=== PATIENT | male | born 1940 | race Caucasian/White ===

== ENCOUNTER 2016-11-01 06:25 | Inpatient (IN) | payer MEDICARE, OTHER ==
--- NOTE | ~2016-11-01 | OP ---
Record Of Operation [facility] [address] [place]. [address] NAME: MAURICIO SCHILLING : 38 STATUS : ADM IN PAT#: [id number] AGE: 76 ADM/REG DATE : 11/01/16 MR#: [id number] REPORT SERV DATE: 11/01/16 DICTATED BY: GAURAV VALENTINE JR. DATE: 11/01/16 REPORT STATUS : Draft TRANSCRIBED BY: MODL DATE: 11/01/16 DATE OF PROCEDURE: 11/01/2016 PREOPERATIVE DIAGNOSIS: Severe right carotid stenosis, previous subclinical strokes. POSTOPERATIVE DIAGNOSIS: Severe right carotid stenosis, previous subclinical strokes. OPERATION: Right carotid endarterectomy with bovine patch angioplasty. SURGEON: Gaurav Valentine M.D. HISTORY: This is a 76-year-old white male, who is admitted to the hospital two days ago for kidney biopsy for a creatinine of 2.7. While in the hospital, he related a story which sounded like a small right hemispheric stroke on 10/11. He had a carotid ultrasound which showed a severe right carotid stenosis. I was then asked to see this patient in consultation. PROCEDURE IN DETAIL: The patient was placed on the operating room table. He underwent a general endotracheal anesthetic. Right side of the neck was prepped and draped in the usual sterile manner. Standard right-sided sternocleidomastoid incision was made. Dissection was carried down to the muscle which was reflected laterally. The facial vein was identified. It was clamped, cut, and tied. The underlying carotid bifurcation was then seen. The patient was heparinized early with 4000 units of heparin to try to prevent potential embolization. All branches of the carotid artery were then encircled with vessel loop away from the bifurcation. All branches were then clamped. An arteriotomy was then done between the CCA and the ICA. A very heavily calcified and ulcerated plaque was seen at the origin of the ICA. This plaque tended to go up superiorly in the neck. Because of these latter two findings, I did not feel that it was reasonable to put a shunt for fear that I would embolize the brain. There was excellent backbleeding from the ICA. Endarterectomy started in the area of the CCA, was carried up to the ECA and then to the ICA. The plaque feathered nicely in the ECA. It tended to one feather in a very distal fashion in the ICA. Fine forceps were used to get all smooth muscle floaters. We elected to patch the arteriotomy open using a piece of bovine pericardial patch material sewn in place as an onlay patch with 6-0 Prolene suture. Before finishing the suture line, the artery was irrigated and bled antegrade and retrograde without clots being seen. The suture line was finished. Blood was laterally run up into the ECA first. There were good Doppler signals distally. I did not feel that a drain was necessary. A protamine was not given. The neck was closed in layers with 3-0 Vicryl deep and 4-0 Vicryl in the skin. The patient tolerated the procedure well and taken back to recovery room in fair condition. No intraoperative complications. Estimated blood loss was 100 mL. DF/ERIN Record Of Operation [address] [address] NAME: MAURICIO SCHILLING : 38 STATUS : ADM IN PAT#: [id number] AGE: 76 ADM/REG DATE : 11/01/16 MR#: [id number] REPORT SERV DATE: 11/01/16 DICTATED BY: GAURAV VALENTINE JR. DATE: 11/01/16 REPORT STATUS : Draft TRANSCRIBED BY: ERIN DATE: 11/01/16 aGurav Valentine Jr., M.D. / [id number] CC: Barb Colmenares Jr., M.D.
[~2016-11-01 06:25] MED LIST: 8 HOUR650 MG PO; ALEVE220 MG PO; ASA5GR PO; COREG12 PO; COZ50 PO; LIPITOR40 PO; NORV5 PO; PRAVAC PO
[2016-11-02] MEDS ORDERED: NORCO1 TA1 PO (12:24)
== END 2016-11-02 17:14 | disposition home or self-care (01) | DRG 27 ==
LOC: SDC/OF 06:25 → PACU 10:26 → 2SO 13:49
PROVIDERS: Surgery
PROC: 03CK3ZZ Extirpation of Matter from Right Internal Carotid Artery, Percutaneous Approach (ICD-10-PCS; principal; 2016-11-01 07:45)
DX: I65.21 Occlusion and stenosis of right carotid artery (principal); E11.22 Type 2 diabetes mellitus with diabetic chronic kidney disease; E11.40 Type 2 diabetes mellitus with diabetic neuropathy, unspecified; I12.9 Hypertensive chronic kidney disease with stage 1 through stage 4 chronic kidney disease, or unspecified chronic kidney disease; M19.90 Unspecified osteoarthritis, unspecified site; E78.5 Hyperlipidemia, unspecified; R80.8 Other proteinuria; Z86.73 Personal history of transient ischemic attack (TIA), and cerebral infarction without residual deficits; Z98.42 Cataract extraction status, left eye; Z87.891 Personal history of nicotine dependence; Z98.41 Cataract extraction status, right eye; Z79.899 Other long term (current) drug therapy; Z79.82 Long term (current) use of aspirin
CPT/HCPCS: 50200; 70551; 77012; 80048; 80069; 82306; 82607; 82746; 82962; 83036; 83735; 84425; 85025; 85610; 85730; 87641; 88304; 88305; 88311; 88313; 88346; 88348; 88350; 93005; 93880; A9270-GY; C1768; G0378; J0690; J2250; J2370; J2405; J2710; J3010; J3370